=== PATIENT | female | born 1985 | race African-American/Black ===

== ENCOUNTER 2022-04-06 11:35 | Observation (INO) | payer SELFPAY ==
[2022-04-06 15:21] LABS: Amphetamine Screen, Urine NEGATIVE (NEGATIVE); Barbiturate Scree,Urine NEGATIVE (NEGATIVE); Benzodiazephine Screen, Urine NEGATIVE (NEGATIVE); Cannabinoid Screen, Urine NEGATIVE (NEGATIVE); Cocaine Screen, Urine NEGATIVE (NEGATIVE); Opiate Scree,Urine NEGATIVE (NEGATIVE); Phencyclidine Screen, Urine NEGATIVE (NEGATIVE)
[2022-04-06 15:38] LABS: Urine Bacteria FEW /hpf (None Seen); Urine Blood Negative /uL (Negative); Urine Mucus FEW (None Seen); Urine Specific Gravity 1.032 (1.001-1.035); Urine WBC 2 /hpf (0 - 5)
== END 2022-04-06 22:06 | disposition home or self-care (01) ==
LOC: LDRP 11:35
PROVIDERS: ADMIT Obstetrics & Gynecology Obstetrics; ATTEND Obstetrics & Gynecology Obstetrics
DX: O26.893 Other specified pregnancy related conditions, third trimester (principal); R10.9 Unspecified abdominal pain; O99.891 Other specified diseases and conditions complicating pregnancy; M54.9 Dorsalgia, unspecified; Z3A.31 31 weeks gestation of pregnancy; Y04.8XXA Assault by other bodily force, initial encounter; Y93.89 Activity, other specified; Y92.89 Other specified places as the place of occurrence of the external cause; Z59.00 Homelessness unspecified
CPT/HCPCS: 59025; 76815; 80307; 81001; 81002; 94760; G0378

== ENCOUNTER 2022-05-16 22:55 | Inpatient (IN) | payer MEDICAID ==
[~2022-05-16] VITALS: Ht 175.3 cm; Wt 78.0 kg
[2022-05-16] MEDS ORDERED: PENICILLIN G POT 5MIL/D5 50ML 50 ML IV ONE (23:15)
[2022-05-16] MEDS ORDERED: PROMETHAZINE HCL 25 MG/ML 1ML IV PRN (23:15)
[2022-05-16] MEDS ORDERED: PHISODERM TOP SOLN 240ML BTL TOP PRN (23:15)
[2022-05-16] MEDS ORDERED: DERMOPLAST 60ML BOTTLE TOP PRN (23:15)
[2022-05-16] MEDS ORDERED: LACTATED RINGER'S 1,000 ML IV SCH (23:15)
[2022-05-16] MEDS ORDERED: BUTORPHANOL TARTRATE 2 MG/1 ML VIAL IV PRN (23:15)
[2022-05-16] MEDS ORDERED: LACT. RINGERS/OXYTOCIN 20UNITS 500 ML IV ONE ×2 (23:15→23:45)
[2022-05-16] MEDS ORDERED: LIDOCAINE 2%HCL (LOCAL ANESTH.) INJ 10ml MDV IJ PRN (23:15)
[2022-05-16] MEDS ORDERED: WITCH HAZEL-GLYCERIN PAD TOP PRN (23:15)
[2022-05-16] MEDS ORDERED: MAGNESIUM SULFATE 100 ML IV ONE (23:53)
[2022-05-16] MEDS ORDERED: MAGNESIUM SULFATE 40MG/ML 1,000 ML IV ONE (23:53)
[2022-05-16 23:56] LABS: Basophils # (auto) 0.1 10 ^3/uL (0-0.2); Basophils % (auto) 0.5 % (0.0-2.0); Eosinophils # (auto) 0.1 10 ^3/uL (0-0.8); Monocytes # (auto) 0.8 10 ^3/uL (0-1.3); White Blood Cell 11.3 10^3/uL (4.4-10.8)
[2022-05-16 23:57] LABS: Eosinophils % (auto) 0.6 % (0.0-7.0); Hematocrit 31.2 % (36.0-46.0); Hemoglobin 10.1 g/dL (12.2-16.2); Lymphocytes % (auto) 17.4 % (10.0-50.0); Mean Corpuscular Hemoglobin 26.8 pg (28.0-32.0); Mean Corpuscular Hgb Conc. 32.3 g/dL (32.0-36.0); Monocytes % (auto) 7.3 % (0.0-12.0); Neutrophils # (auto) 8.4 10 ^3/uL (1.6-8.6); Neutrophils % (auto) 74.2 % (37.0-80.0); Red Blood Cells 3.76 10^6/uL (4.0-5.20); Red Cell Distribution Width 14.9 % (11.8-14.3)
[2022-05-17] MEDS ORDERED: MAGNESIUM SULFATE 40MG/ML 1,000 ML IV SCH
[2022-05-17] MEDS ORDERED: LACTATED RINGER'S 1,000 ML IV SCH
[2022-05-17] MEDS ORDERED: LORazepam 2MG/ML-1ML VIAL IV PRN
[2022-05-17] MEDS ORDERED: MAGNESIUM SULFATE 100 ML IV ONE
[2022-05-17 00:07] LABS: Albumin 2.7 g/dL (3.4-5.0); Calcium 8.2 mg/dL (8.5-10.1); Potassium 3.7 mmol/L (3.5-5.1)
[2022-05-17 00:08] LABS: Alcohol, Urine < 3.0 mg/dL (0-10); Amphetamine Screen, Urine NEGATIVE (NEGATIVE); Barbiturate Scree,Urine NEGATIVE (NEGATIVE); Benzodiazephine Screen, Urine NEGATIVE (NEGATIVE); Cannabinoid Screen, Urine NEGATIVE (NEGATIVE); Cocaine Screen, Urine NEGATIVE (NEGATIVE); Opiate Scree,Urine NEGATIVE (NEGATIVE); Phencyclidine Screen, Urine NEGATIVE (NEGATIVE)
[2022-05-17 00:10] LABS: Protein, Urine 61.9 mg/dL (0.0-11.9)
[2022-05-17 00:11] LABS: Urine Bacteria NONE SEEN /hpf (None Seen); Urine Blood 3+ /uL (Negative); Urine Mucus FEW (None Seen); Urine Specific Gravity 1.017 (1.001-1.035); Urine WBC 34 /hpf (0 - 5)
[2022-05-17 00:12] LABS: BUN/Creatinine Ratio 8.2; Bilirubin, Total 0.2 mg/dL (0.2-1.0); Total Protein 6.8 g/dL (6.4-8.2); Uric Acid 3.6 mg/dL (2.6-6.0)
[2022-05-17] MEDS: BUTORPHANOL TARTRATE 2 MG/1 ML VIAL IV PRN ×2 (00:29→02:58)
[2022-05-17] MEDS: hydrALAZINE HCL 20 MG/ML VL IV PRN ×3 (00:34→00:37)
[2022-05-17] MEDS ORDERED: miSOPROStol 100 mcg TAB PR PRN (00:45)
[2022-05-17] MEDS ORDERED: miSOPROStol 100 mcg TAB SL PRN (00:45)
[2022-05-17] MEDS ORDERED: CARBOPROST TROMETHAMINE 250 MCG/1ML VIAL IM PRN (00:45)
[2022-05-17 03:36] LABS: INR 0.93 (0.9-1.15); Partial Thromboplastin Time 30.4 sec (23.6-33.0)
[2022-05-17] MEDS ORDERED: LIDOCAINE HCL 2 %PF INJ 10ML AMP IJ ONE ×2 (03:45→03:50)
[2022-05-17] MEDS ORDERED: ROPIVACAINE HCL 200 ML EPI SCH ×2 (03:45→04:15)
[2022-05-17] MEDS ORDERED: LACTATED RINGER'S 1,000 ML IV ONE (03:45)
[2022-05-17] MEDS ORDERED: NALOXONE HCL 0.4 MG/ML VIAL IV ONE (03:45)
[2022-05-17] MEDS ORDERED: ePHEDrine SULFATE 50 MG/ML AMP IV ONE (03:45)
[2022-05-17] MEDS ORDERED: ROPIVACAINE HCL 200 ML ONE (03:50)
[2022-05-17] MEDS ORDERED: ePHEDrine SULFATE 50 MG/ML AMP ONE (03:50)
[2022-05-17] MEDS ORDERED: STERILE WATER 10 ML ONE (04:04)
[2022-05-17] MEDS ORDERED: PENICILLIN G POT 5MILLION UNIT VIAL ONE (04:04)
[2022-05-17] MEDS: PENICILLIN G POTASSIUM 2,500,000 UNITS in D5W 5% 50 ML IV SCH ×2 (04:15→07:47)
[2022-05-17] MEDS ORDERED: LACT. RINGERS/OXYTOCIN 20UNITS 1,000 ML IV SCH (07:30)
[2022-05-17] MEDS ORDERED: TERBUTALINE SULFATE 1 MG/ML 1ML VIAL SC PRN (07:30)
[2022-05-17] MEDS ORDERED: hydrALAZINE HCL 20 MG/ML VL IV ONE (08:33)
[2022-05-17] MEDS ORDERED: ACETAMINOPHEN 325 MG TAB PO PRN (09:30)
[2022-05-17] MEDS ORDERED: IBUPROFEN 600 MG TAB PO PRN (09:30)
[2022-05-17] MEDS ORDERED: hydrALAZINE HCL 20 MG/ML VL IV PRN (10:00)
[2022-05-17] MEDS: LABETALOL HCL 200 MG TAB PO SCH ×2 (10:20→21:52)
[2022-05-17 10:55] VITALS: BP 158/94
[2022-05-17] MEDS: ceFAZolin 1GM/50ML 50 ML IV SCH ×2 (14:04→21:52)
[2022-05-17] MEDS ORDERED: HYDROcodone-ACET 5/325MG TAB PO PRN (14:30)
[2022-05-17] MEDS: HYDROcodone-ACET 5/325MG TAB PO PRN ×2 (15:03→19:50)
[2022-05-17 15:10] VITALS: BP 132/82
[2022-05-17 19:30] VITALS: BP 142/86
[2022-05-17 23:24] VITALS: BP 144/87
[2022-05-18 03:15] VITALS: BP 137/92
[2022-05-18] MEDS: ceFAZolin 1GM/50ML 50 ML IV SCH ×2 (05:58→14:00)
[2022-05-18 06:50] VITALS: BP 138/87
[2022-05-18] MEDS: LABETALOL HCL 200 MG TAB PO SCH ×2 (09:42→22:05)
[2022-05-18] MEDS: HYDROcodone-ACET 5/325MG TAB PO PRN (10:35)
[2022-05-18 10:38] VITALS: BP 119/65
[2022-05-18] MEDS ORDERED: IBU600T PO (10:54)
[2022-05-18] MEDS ORDERED: LABE200T6 PO (10:54)
[2022-05-18] MEDS ORDERED: HYDR-4902 PO (10:56)
[2022-05-18 15:07] VITALS: BP 142/82
[2022-05-18 19:30] VITALS: BP 140/76
[2022-05-18 22:50] VITALS: BP 133/79
[2022-05-19 03:10] VITALS: BP 137/77
[2022-05-19 05:06] LABS: RPR Non Reactive (Non Reactive)
[2022-05-19] MEDS: HYDROcodone-ACET 5/325MG TAB PO PRN ×3 (06:49→15:07)
[2022-05-19 06:51] VITALS: BP 148/82
[2022-05-19] MEDS: LABETALOL HCL 200 MG TAB PO SCH (09:55)
[2022-05-19 11:03] VITALS: BP 143/94
[2022-05-19] MEDS ORDERED: LABE200T6 GT (12:24)
[2022-05-19] MEDS ORDERED: LABE300T3 PO (12:27)
[2022-05-19 15:00] VITALS: BP 153/90
[2022-05-19 16:53] VITALS: BP 156/96
[2022-05-20 02:06] LABS: Rubella Antibodies, IgG 5.35 index (Immune >0.99)
== END 2022-05-19 17:25 | disposition home or self-care (01) | DRG 560 ==
LOC: LDRP 22:55 → OBSVTOIN 23:05 → LDRP 05-17 15:35
PROVIDERS: ADMIT Obstetrics & Gynecology; ATTEND Obstetrics & Gynecology
PROC: 3E0R3BZ Introduction of Anesthetic Agent into Spinal Canal, Percutaneous Approach (ICD-10-PCS; principal; 2022-05-17)
PROC: 10E0XZZ Delivery of Products of Conception, External Approach (ICD-10-PCS; 2022-05-17)
PROC: 00HU33Z Insertion of Infusion Device into Spinal Canal, Percutaneous Approach (ICD-10-PCS; 2022-05-17)
DX: O99.344 Other mental disorders complicating childbirth (principal); Z37.0 Single live birth; F31.30 Bipolar disorder, current episode depressed, mild or moderate severity, unspecified; Z20.822 Contact with and (suspected) exposure to COVID-19; Z3A.37 37 weeks gestation of pregnancy
CPT/HCPCS: 36415; 59025; 59409; 62282; 80053; 80307; 81001; 81002; 82565; 82570; 83735; 84156; 84550; 85025; 85379; 85384; 85610; 85730; 86592; 86703; 86762; 86850; 86900; 86901; 87340; 94760; 94762; 96361; 96365; 96374; 96375; G0378; J0690; J2001; J2540; J2590; J7060

== ENCOUNTER 2023-12-17 04:20 | Inpatient (IN) | payer MEDICAID ==
[2023-12-17] VITALS (17 sets, daily range): RESP 16–22; TEMP 98–98.1; O2SAT 95–98
[~2023-12-17] VITALS: Ht 175.3 cm; Wt 86.2 kg
[~2023-12-17 04:20] MED LIST: HYDR-4902 PO; IBU600T PO; LABE300T3 PO
[2023-12-17] MEDS ORDERED: TERBUTALINE SULFATE 1 MG/ML 1ML VIAL SC SCH (04:45)
[2023-12-17] MEDS ORDERED: AMPICILLIN SOD 2GM INJ 2 GM in SODIUM CHL 0.9% 100 ML IV ONE (04:45)
[2023-12-17] MEDS ORDERED: LACTATED RINGER'S 1,000 ML IV ONE (04:45)
[2023-12-17] MEDS ORDERED: BETAMETHASONE ACET (30mg/5ml) 5ml Vial 6mg/ml IM ONE (04:45)
[2023-12-17] MEDS ORDERED: LACTATED RINGER'S 1,000 ML IV SCH ×2 (04:45→05:00)
[2023-12-17] MEDS ORDERED: miSOPROStol 100 mcg TAB ONE (04:55)
[2023-12-17] MEDS ORDERED: LIDOCAINE 2%HCL (LOCAL ANESTH.) INJ 20ML MDV ONE (04:55)
[2023-12-17] MEDS ORDERED: LACT. RINGERS/OXYTOCIN 20UNITS 1,000 ML IV ONE (04:56)
[2023-12-17] MEDS ORDERED: LACT. RINGERS/OXYTOCIN 20UNITS 500 ML IV ONE ×4 (05:00→06:30)
[2023-12-17] MEDS ORDERED: miSOPROStol 100 mcg TAB PR PRN (05:00)
[2023-12-17] MEDS ORDERED: miSOPROStol 100 mcg TAB SL PRN (05:00)
[2023-12-17] MEDS ORDERED: ONDANSETRON HCL 4 MG/2 ML VIAL IV PRN (05:00)
[2023-12-17] MEDS ORDERED: DERMOPLAST 60ML BOTTLE TOP PRN (05:00)
[2023-12-17] MEDS ORDERED: PROMETHAZINE HCL 25 MG/ML 1ML IV PRN (05:00)
[2023-12-17] MEDS ORDERED: PENICILLIN G POT 5MIL/D5 50ML 50 ML IV ONE ×2 (05:00→05:08)
[2023-12-17] MEDS ORDERED: LIDOCAINE 2%HCL (LOCAL ANESTH.) INJ 20ML MDV IJ PRN (05:00)
[2023-12-17] MEDS ORDERED: WITCH HAZEL-GLYCERIN PAD TOP PRN (05:00)
[2023-12-17] MEDS ORDERED: CARBOPROST TROMETHAMINE 250 MCG/1ML VIAL IM PRN (05:00)
[2023-12-17] MEDS ORDERED: PHISODERM TOP SOLN 240ML BTL TOP PRN (05:00)
[2023-12-17 05:10] LABS: Amphetamine Screen, Urine Neg (NEGATIVE); Barbiturate Scree,Urine Neg (NEGATIVE); Benzodiazephine Screen, Urine Neg (NEGATIVE); Cocaine Screen, Urine Neg (NEGATIVE); Opiate Scree,Urine Neg (NEGATIVE); Phencyclidine Screen, Urine Neg (NEGATIVE)
[2023-12-17 05:11] LABS: Cannabinoid Screen, Urine Neg (NEGATIVE)
[2023-12-17] MEDS ORDERED: METHYLERGONOVINE MALEATE 0.2 MG/ML AMP IM ONE (05:15)
[2023-12-17 05:38] LABS: Basophils # (auto) 0.1 10 ^3/uL (0-0.2); Basophils % (auto) 0.8 % (0.0-2.0); Eosinophils # (auto) 0.1 10 ^3/uL (0-0.8); Eosinophils % (auto) 0.8 % (0.0-7.0); Hematocrit 33.3 % (36.0-46.0); Lymphocytes # (auto) 1.9 10 ^3/uL (0.4-5.4); Lymphocytes % (auto) 24.4 % (10.0-50.0); Mean Corpuscular Hemoglobin 27.5 pg (28.0-32.0); Mean Corpuscular Volume 83.3 fL (80.0-100.0); Monocytes # (auto) 0.7 10 ^3/uL (0-1.3); Monocytes % (auto) 8.8 % (0.0-12.0); Neutrophils # (auto) 5.2 10 ^3/uL (1.6-8.6); Neutrophils % (auto) 65.2 % (37.0-80.0)
[2023-12-17 05:48] LABS: Albumin 3.8 g/dL (3.2-4.8); Alkaline Phosphatase 81 U/L (46-116); Anion Gap 10 (5-15); Aspartate Aminotransferase < 8 U/L (13-40); Calcium 8.2 mg/dL (8.7-10.4); Carbon Dioxide 19 mmol/L (20-30); Chloride 108 mmol/L (98-107); Glucose 103 mg/dL (74-106); Potassium 3.6 mmol/L (3.5-5.1); Sodium 137 mmol/L (136-145); Uric Acid 3.2 mg/dL (3.1-7.8)
[2023-12-17 05:49] LABS: Bilirubin, Total 0.3 mg/dL (0.2-1.0); Total Protein 6.4 g/dL (5.7-8.2)
[2023-12-17 05:54] LABS: Blood Urea Nitrogen < 5 mg/dL (9-23)
[2023-12-17 05:55] LABS: Alanine Aminotransferase < 9 U/L (7-40)
[2023-12-17 05:58] LABS: INR 0.98 (0.9-1.15); Partial Thromboplastin Time 32.1 SEC (24.5-34.5); Prothrombin Time 10.3 sec (9.3-11.8)
[2023-12-17] MEDS ORDERED: LABETALOL HCL 200 MG TAB PO SCH (06:00)
[2023-12-17 06:15] LABS: Fern Testing Negative
[2023-12-17] MEDS: HYDROcodone-ACET 10/325MG TAB PO PRN ×4 (06:16→22:06)
[2023-12-17] MEDS ORDERED: LORazepam 2MG/ML-1ML VIAL IV ONE (06:45)
[2023-12-17] MEDS ORDERED: MAGNESIUM SULFATE 100 ML IV ONE ×2 (06:45→06:50)
[2023-12-17] MEDS ORDERED: hydrALAZINE HCL 20 MG/ML VL ONE (06:48)
[2023-12-17] MEDS ORDERED: MAGNESIUM SULFATE 40MG/ML 1,000 ML IV ONE (06:50)
[2023-12-17] MEDS: hydrALAZINE HCL 20 MG/ML VL IV PRN ×3 (06:57→08:54)
[2023-12-17 07:30] LABS: Urine Bacteria NONE SEEN /hpf (None Seen); Urine Blood 3+ /uL (Negative); Urine Clarity Clear (Clear); Urine Color Yellow (Yellow); Urine Mucus FEW (None Seen); Urine Protein, UAD Negative (Negative); Urine Specific Gravity 1.012 (1.001-1.035); Urine Urobilinogen Normal (Negative); Urine WBC 14 /hpf (0 - 5); Urine pH 7.5 (5.0-8.0)
[2023-12-17 07:37] LABS: Protein, Urine 24.8 mg/dL (0.0-11.9)
[2023-12-17 07:40] LABS: Creatinine, Urine 36.26 mg/dL (30.0-125.0); Urine Protein/Creatinine Ratio 0.68
[2023-12-17] MEDS: MAGNESIUM SULFATE 40MG/ML 1,000 ML IV SCH (07:45)
[2023-12-17] MEDS ORDERED: DIPHENOXYLATE W/ATROPINE 2.5 MG TAB PO SCH (10:00)
[2023-12-17] MEDS: LABETALOL HCL 200 MG TAB PO SCH ×2 (10:06→22:09)
[2023-12-17] MEDS: IBUPROFEN 600 MG TAB PO PRN (14:29)
[2023-12-17] MEDS ORDERED: LORazepam 2MG/ML-1ML VIAL IV PRN (17:00)
[2023-12-18] VITALS (14 sets, daily range): BP systolic 125–162; BP diastolic 66–97; PULSE 72–80; RESP 17–20; TEMP 97.8–98.4; O2SAT 95–99
[2023-12-18] MEDS: HYDROcodone-ACET 10/325MG TAB PO PRN ×3 (01:48→11:55)
[2023-12-18] MEDS: MAGNESIUM SULFATE 40MG/ML 1,000 ML IV SCH (02:24)
[2023-12-18 08:06] LABS: RPR Non Reactive (Non Reactive); Rubella Antibodies, IgG 4.38 index (Immune >0.99)
[2023-12-18] MEDS: LABETALOL HCL 200 MG TAB PO SCH ×2 (10:09→21:56)
[2023-12-18] MEDS: IBUPROFEN 600 MG TAB PO PRN ×2 (10:10→16:57)
[2023-12-18] MEDS: ACETAMINOPHEN 325 MG TAB PO PRN (22:11)
[2023-12-19] MEDS ORDERED: LABE300T3 PO (02:50)
[2023-12-19 03:00] VITALS: RESP 16
[2023-12-19 07:30] VITALS: BP 165/90; PULSE 69; RESP 18; RESP 20; TEMP 98.4; O2SAT 95
[2023-12-19] MEDS: ACETAMINOPHEN 325 MG TAB PO PRN (07:40)
[2023-12-19 08:27] VITALS: BP 151/82
[2023-12-19] MEDS: LABETALOL HCL 200 MG TAB PO SCH (09:30)
[2023-12-19 10:50] VITALS: BP 154/89; PULSE 79; RESP 18; TEMP 98.5
== END 2023-12-19 10:49 | disposition home or self-care (01) | DRG 861 ==
LOC: LDRP 04:20 → OBSVTOIN 04:46 → LDRP 04:47
PROVIDERS: ADMIT Obstetrics & Gynecology; ATTEND Obstetrics & Gynecology
PROC: 10E0XZZ Delivery of Products of Conception, External Approach (ICD-10-PCS; principal; 2023-12-17)
PROC: 0HQ9XZZ Repair Perineum Skin, External Approach (ICD-10-PCS; 2023-12-17)
DX: Z3A.33 33 weeks gestation of pregnancy (principal); O60.14X0 Preterm labor third trimester with preterm delivery third trimester, not applicable or unspecified; Z37.0 Single live birth; O13.4 Gestational [pregnancy-induced] hypertension without significant proteinuria, complicating childbirth; O70.0 First degree perineal laceration during delivery
CPT/HCPCS: 36415; 59025; 59409; 76805; 80053; 80307; 81001; 81002; 82570; 83735; 84112; 84156; 84550; 85025; 85610; 85730; 86592; 86703; 86762; 86850; 86900; 86901; 87340; 94760; 96360; 96361; 96365; 96366; 96372; G0378; J2540; J2590